=== PATIENT | female | born 1990 | race Caucasian/White ===

== ENCOUNTER 2025-04-17 10:31 | Emergency (ER) | payer MEDICAID, SELFPAY ==
[2025-04-17 10:39] VITALS: BP 116/73; PULSE 77; RESP 17; TEMP 36.8; O2SAT 99; BMI 23.1
--- NOTE | 2025-04-17 11:06 | PD.EDEAR ---
ED Ear RME/HPI General Chief complaint: Ear Stated complaint: Left ear infection X 1 week Time Seen by Provider: 04/17/25 10:38 Arrival date/time: 04/17/25 10:31 34-year-old female presents to the emergency department today for complaints of left ear pain patient reports that she has been treated for an ear infection patient is given a prescription for amoxicillin as well as ofloxacin yesterday Limitations: no limitations Related Data Previous Rx's ?Medication ?Instructions ?Recorded ibuprofen 600 mg tablet 600 mg PO Q8HR PRN PAIN #25 tabs 09/15/15 amoxicillin 875 mg-potassium 1 tab PO BID 10 days #20 tabs 04/17/25 clavulanate 125 mg tablet tyelsotk-jpvvzabfp-xouwhqsrt 3.5 4 drp otic (ear) Q8H 7 days #10 mL 04/17/25 mg-10,000 unit/mL-1 % ear drops,susp Allergies Allergy/AdvReac Type Severity Reaction Status Date / Time NKA* Allergy Uncoded 04/17/25 10:35 Review of Systems Review of Systems Systems Reviewed: All systems reviewed, normal except as documented Constitutional Constitutional: Reports system reviewed and no additional complaints, except as documented, Denies fever(s) and Denies headache(s) Eyes Eyes: Reports system reviewed and no additional complaints, except as documented and Denies blurry vision ENT Ears, Nose, Mouth, and Throat: Reports system reviewed and no additional complaints, except as documented, Reports otalgia (Left ear pain, left erythema), Denies headache(s), Denies nasal congestion and Denies nasal discharge Cardiovascular Cardiovascular: Reports system reviewed and no additional complaints, except as documented, Denies chest pain and Denies dyspnea Respiratory Respiratory: Reports system reviewed and no additional complaints, except as documented, Denies chest congestion, Denies cough and Denies dyspnea Gastrointestinal Gastrointestinal: Reports system reviewed and no additional complaints, except as documented and Denies abdominal pain Integumentary/Breasts Skin/Breast: Reports system reviewed and no additional complaints, except as documented and Denies rash Neurologic Neurologic: Reports system reviewed and no additional complaints, except as documented, Reports as per HPI and Denies headache(s) Past Medical History Social History SMOKING STATUS: Never smoker ED Exam General Limitations: Present no limitations General appearance: Present alert and in no apparent distress Head Head exam: Present atraumatic Eye Eye exam: Present normal appearance, PERRL and EOMI ENT ENT exam: Present normal oropharynx and mucous membranes moist Expanded ENT Exam TM/Canal exam: Left TM: erythema, bulging and cerumen impaction Neck Neck exam: Present normal inspection, full ROM and trachea midline Chest Chest inspection: Present normal inspection and symmetric chest wall rise Respiratory Respiratory exam: Present normal lung sounds bilaterally Cardiovascular Cardiovascular exam: Present regular rate, normal rhythm and normal heart sounds Abdominal Exam Abdominal exam: Present soft and normal bowel sounds Extremities Exam Extremities exam: Present normal inspection and full ROM Back Exam Back exam: Present normal inspection and full ROM Neurological Exam Neurological exam: Present alert, oriented X3 and CN II-XII intact Psychiatric Psychiatric exam: Present normal affect and normal mood Skin Skin exam: Present warm, dry, intact and normal color Course Quality Measures none Orders Category Date Time Status ED Ear Irrigation X1 Care 04/17/25 10:48 Active Vital Signs Vital signs: Vital Signs Temperature 98.2 F 04/17/25 10:39 Pulse Rate 77 04/17/25 10:39 Respiratory Rate 17 04/17/25 10:39 Blood Pressure 116/73 04/17/25 10:39 Pulse Oximetry (%) 99 04/17/25 10:39 Oxygen Delivery Method Room Air 04/17/25 10:39 O2 saturation 99% room air within normal limits Ear Patient data External records reviewed:: [facility] previous records Clinical information provided by:: patient Social determinants that could affect healthcare access:: none Patient has the following chronic illnesses:: None How is presenting disease/condition affected by chronic disease/condition?: no chronic disease Evaluation data The following diagnostics were reviewed and interpreted by me:: other (specify) (N/A) Lab and/or radiology exams considered but not ordered:: Considered not ordered Interpretation Summary: N/A Medications / Prescriptions Medications or Prescriptions considered but not ordered:: Given Medication administrations:: Given Consultations Consultation(s) initiated? (list below): No Diagnosis Ear Differential Diagnosis: otitis externa, otitis media and foreign body in ear Most likely diagnosis given after review of the tests above:: Otitis externa Admission Indicated Admission indicated?: not indicated Admission Request Was there a request for admission?: No Disposition Plan Disposition Plan: Discharge Discharge Attestation Discharge Attestation: The patient and all family members were given an opportunity to ask questions and understood the discharge instructions. Discharge instructions specifically effects, indications for sooner follow up or return to the emergency department, and the expected course of current diagnosis. Patient condition: Stable Medical Decision Making MDM Narrative MDM Narrative: 34-year-old female presents to the emergency department today for complaints of left ear pain patient reports that she has been treated for an ear infection patient is given a prescription for amoxicillin as well as ofloxacin yesterday On exam patient well-appearing does not appear ill or toxic distress Left ear irrigated removed matter from the left ear Patient discharged home in no distress to follow-up with primary care doctor in the next 24 to 48 hours and for any worsening symptoms to return to the ER immediately Differential Diagnosis Differential Diagnosis: Otitis media, otitis externa, eustachian tube Medical Records Medical records reviewed: Yes I reviewed the patient's medical records. Discharge Plan Plan Patient Disposition: HOME (Self Care) Discharge Disposition comment: Stable Prescriptions/Referrals Prescriptions/Med Rec: New amoxicillin-pot clavulanate 875-125 mg tablet 1 tab PO BID 10 Days Qty: 20 0RF qqalokmm-qqyorszpx-UL 3.5-10,000-1 mg/mL-unit/mL-% drops,suspension 4 drp otic (ear) Q8H 7 Days Qty: 10 0RF No Action ibuprofen 600 MG tablet 600 mg PO Q8HR PRN (Reason: PAIN) Qty: 25 0RF Referrals: Sulema Mora PA-C [Primary Care Provider] - In 1 week Problem List Clinical Impression: Acute otitis media, left Patient/Caregiver Discharge Instructions Education Materials: Anatomy of the Ear Additional Instructions: Please follow up with your primary care doctor in the next 24-48hrs for any worsening symptoms return here immediately Print Language: Sami Stand Alone Forms: Yolie Award Info., Patient Portal Info Letter PA/JADE Supervising Physician CAMI/JADE Supervising Physician: Dr. Becker
== END 2025-04-17 11:46 | disposition home or self-care (01) ==
PROVIDERS: Emergency Provider Emergency Medicine; PCP Physician Assistant
DX: H61.22 Impacted cerumen, left ear (principal)
CPT/HCPCS: 69209; 99281

== ENCOUNTER 2025-04-25 10:54 | Emergency (ER) | payer MEDICAID, SELFPAY ==
[2025-04-25 10:55] VITALS: BMI 22.6
[2025-04-25 11:27] VITALS: BP 113/73; PULSE 78; RESP 18; TEMP 36.9; O2SAT 98
--- NOTE | 2025-04-25 11:35 | PD.EDADULT ---
ED General RME/HPI General Chief complaint: Ear Stated complaint: L EAR INFECTION; SEEN HERE X1 WEEK AGO Time Seen by Provider: 04/25/25 11:32 Arrival date/time: 04/25/25 10:54 CC: Left ear pain HPI patient has been seen multiple times for the same complaint has had 2 rounds of antibiotics as well as otic drops to the left ear. Patient states she continues to have pain but no decreased hearing. Currently the patient is on Augmentin and Polymycin otic drops. Right ear is unremarkable. Related Data Previous Rx's ?Medication ?Instructions ?Recorded ibuprofen 600 mg tablet 600 mg PO Q8HR PRN PAIN #25 tabs 09/15/15 amoxicillin 875 mg-potassium 1 tab PO BID 10 days #20 tabs 04/17/25 clavulanate 125 mg tablet acetic acid 2 % ear solution 3 drp otic (ear) Q6H #15 mL 04/25/25 Allergies Allergy/AdvReac Type Severity Reaction Status Date / Time NKA* Allergy Uncoded 04/25/25 10:57 Review of Systems Review of Systems Narrative Review of Systems: GEN: No fever, no chills, no weight loss EYES: No discharge, no visual changes, no pain HEENT: + ear pain, no congestion, no sore throat PULM: No shortness of breath, no cough, no congestion CV: No chest pain, no dyspnea on exertion, no palpitations GI: No nausea, no vomiting, no diarrhea, no pain, no constipation : No frequency, no urgency, no dysuria MUSC/SKEL: No joint pain, no back pain SKIN: No rash PSYCH: No hallucinations, no depression HEME/LYMPH: No easy bleeding or bruising tendencies NEURO: No weakness, no headache Past Medical History Social History SMOKING STATUS: Never smoker ED Exam Narrative Physical exam: [General: In mild discomfort but not in any acute distress Head normocephalic HEENT: Ears, right ear is clear EACs clear TMs visible positive cone of light no erythema or edema. Left EAC the floor is coated with white discharge. TM is occluded by a white substance. No pain with tugging on the pinna. All other subsystems of HEENT are within acceptable limits Neck is supple nontender Chest equal chest rise nontender to palpation Respiratory: Clear to auscultation no wheezes crackles or rubs CV: Rate rhythm is regular no murmurs rubs or clicks Abdomen is soft nontender no masses positive bowel sounds all 4 quadrants Back: No CVA tenderness no spinous process tenderness from cervical spine thoracic and lumbar spine Skin: Intact no petechiae rash induration ulceration or crepitus Extremities: Moving all extremity against resistance cap refill less than 2 seconds neurosensory intact Neuro: Awake alert oriented x3 Glascow coma 15 no focal deficits] Course Course Course Narrative: After flushing the ear TM is visible, and it is liquid soaked turning white but there is no erythema edema or exudate. The floor of the EAC is consistently covered in a white discharge. Upon further interview the patient admits that she been sticking make-up items in her ear when it itches. This may be exacerbating the symptoms. Patient I feel does not need to be on antibiotics anymore, we will put the patient on otic drops for otitis externa. Quality Measures none Vital Signs Vital signs: Vital Signs Temperature 98.4 F 04/25/25 11:27 Pulse Rate 78 04/25/25 11:27 Respiratory Rate 18 04/25/25 11:27 Blood Pressure 113/73 04/25/25 11:27 Pulse Oximetry (%) 98 04/25/25 11:27 Oxygen Delivery Method Room Air 04/25/25 11:27 Discharge Plan Plan Patient Disposition: HOME (Self Care) Patient condition on transfer: Stable Prescriptions/Referrals Prescriptions/Med Rec: New acetic acid 2 % solution 3 drp otic (ear) Q6H Qty: 15 0RF Rx Instructions: apply to (cotton) wick; replace wick every 24 hours No Action ibuprofen 600 MG tablet 600 mg PO Q8HR PRN (Reason: PAIN) Qty: 25 0RF amoxicillin-pot clavulanate 875-125 mg tablet 1 tab PO BID 10 Days Qty: 20 0RF Referrals: No Primary/Family,Physician [Primary Care Provider] - In 1 week Manan Pal MD [Physician, Family Practice] - In 1 week Problem List Clinical Impression: Otitis externa Patient/Caregiver Discharge Instructions Other Activity Instructions:: You can stop the oral antibiotics whenever you want. The acetic acid drops will help eliminate this. Make sure your ear stays dry when you shower. Take Benadryl nighttime for the itch. Alternate between ibuprofen and Tylenol every 4 hours for pain. If there is worsening of symptoms follow-up with your primary care doctor and look for referral for an certified hearing instrument dispenser. Education Materials: ED External Ear Infection (Adult) Print Language: Ghanaian Stand Alone Forms: Yolie Award Info., Patient Portal Info Letter, Work/School Release PA/COLLECTION TEAM LEAD Supervising Physician PA/COLLECTION TEAM LEAD Supervising Physician: Prince Erickson ENP
== END 2025-04-25 12:45 | disposition home or self-care (01) ==
PROVIDERS: Emergency Provider Emergency Medicine
DX: H60.392 Other infective otitis externa, left ear (principal)
CPT/HCPCS: 99281